=== PATIENT | male | born 1990 | race Two or more races ===

== ENCOUNTER 2019-02-11 09:43 | Day surgery (SDC) | payer MEDICAID ==
[2019-02-10 15:38] LABS: Basophils # (auto) 0 uL; Eosinophils # (auto) 0.1 uL
[2019-02-10 15:39] LABS: Basophils % (auto) 0.6 % (0.0-2.0); Eosinophils % (auto) 1.3 % (0.0-7.0); Hematocrit 52.7 % (41.0-53.0); Hemoglobin 18.4 g/dL (13.5-17.5); Lymphocytes # (auto) 1.6 uL; Lymphocytes % (auto) 24.8 % (10.0-50.0); Mean Corpuscular Hemoglobin 34.7 pg (28.0-32.0); Mean Corpuscular Volume 99.3 fL (80.0-100.0); Monocytes # (auto) 0.5 uL; Monocytes % (auto) 8.1 % (0.0-12.0); Neutrophils # (auto) 4.3 uL; Neutrophils % (auto) 65.2 % (37.0-80.0); Nucleated Red Blood Cells % 0.1 %; Platelet Count (auto) 160 10^3/uL (140-450); Red Cell Distribution Width 13.2 % (11.8-14.3); White Blood Cell 6.6 10^3/uL (4.4-10.8)
[2019-02-10 15:54] LABS: INR 1.01 (0.9-1.15); Partial Thromboplastin Time 32.6 sec (23.64-32.05)
[2019-02-10 16:03] LABS: Calcium 8.9 mg/dL (8.5-10.1)
[2019-02-10 16:08] LABS: BUN/Creatinine Ratio 20.5; Bilirubin, Total 0.7 mg/dL (0.2-1.0); Total Protein 8.7 g/dL (6.4-8.2)
[~2019-02-11] VITALS: Ht 172.7 cm; Wt 89.8 kg
[~2019-02-11 09:43] MED LIST: ASPI-404 PO
[2019-02-11] MEDS ORDERED: CLINDAMYCIN 600MG IV 50 ML IV ONE (10:23)
[2019-02-11] MEDS ORDERED: ROPIVACAINE 0.5% (5MG/ML) 20ML AMPULE IJ ONE (13:33)
[2019-02-11] MEDS ORDERED: GLYCOPYRROLATE 0.2 MG/ML 1ML VIAL IV ONE (13:40)
[2019-02-11] MEDS ORDERED: KETAMINE HCL 1 ML ONE (13:41)
[2019-02-11] MEDS ORDERED: ROCURONIUM 10MG/ML 10ML VIAL IV ONE (13:46)
[2019-02-11] MEDS ORDERED: SUCCINYLCHOLINE CHLORIDE 20 MG/ML 10ML VIAL IV ONE (13:51)
[2019-02-11] MEDS ORDERED: PROPOFOL 10 MG/ML 20 ML IV ONE (13:52)
[2019-02-11] MEDS ORDERED: MIDAZOLAM HCL 1MG/1ML-2 ML VIAL ONE (13:52)
[2019-02-11] MEDS ORDERED: MIDAZOLAM HCL 1MG/1ML-2 ML VIAL IV PRN (14:45)
[2019-02-11 15:35] VITALS: BP 141/96
== END 2019-02-11 15:55 | disposition home or self-care (01) ==
LOC: SUR 09:43
PROVIDERS: ATTEND Podiatrist Foot & Ankle Surgery
DX: L03.032 Cellulitis of left toe (principal); B35.1 Tinea unguium; L60.0 Ingrowing nail; F79 Unspecified intellectual disabilities; Z88.0 Allergy status to penicillin; Z90.49 Acquired absence of other specified parts of digestive tract; Z79.82 Long term (current) use of aspirin
CPT/HCPCS: 11750; 36415; 80053; 85025; 85610; 85730; J0330; J2250; J2704; J2795; J3490